=== PATIENT | male | born 1970 | race African-American/Black ===

== ENCOUNTER 2018-09-10 07:51 | Day surgery (SDC) | payer OTHER ==
[~2018-09-10] VITALS: Ht 180.3 cm; Wt 83.9 kg
[~2018-09-10 07:51] MED LIST: DESFLURANE 240 ML BOTTLE IH ONE
[2018-09-10 08:00] VITALS: BP 102/69
--- NOTE | 2018-09-10 08:00 | NUR ---
RN NOTES RECEIVED PATIENT, A/OX4, AMBULATORY, ABLE TO MAKE NEEDS KNOWN. NOT ON ANY FORM OF DISTRESS. BREATHING EVEN AND UNLABORED. FOR DAY SURGERY UNDER DR. BARRETT FOR L KNEE ARTHROSCOPY, CHONDROPLASTY, PARTIAL LATERAL MENISCECTOMY. SYNOVECTOMY. PATIENT MADE COMFORTABLE IN BED. VITAL SIGNS TAKEN AND NOTED. CONSENT FOR SURGERY, ANESTHESIA AND BLOOD TRANSFUSION TAKEN FROM THE PATIENT. IV LINE INITIATED: RAC G 20. PATIENT PREP FOR THE SURGERY. PATIENT ORIENTED TO UNIT AND USE OF CALL LIGHT. SAFETY MEASURES PUT IN PLACE. CALL LIGHT WITHIN REACH, WILL CONTINUE TO MONITOR AND ANTICIPATE NEEDS
--- NOTE | 2018-09-10 09:20 | NUR ---
RN NOTES PATIENT PICKED UP BY OR TEAM
[2018-09-10] MEDS ORDERED: FENTANYL PF 250MCG/5ML AMPUL ONE (09:27)
[2018-09-10] MEDS ORDERED: MIDAZOLAM HCL 2 MG/2ML VIAL ONE (09:27)
[2018-09-10] MEDS ORDERED: FAMOTIDINE/PF INJ 20 MG/2 ML VIAL IV ONE (09:34)
[2018-09-10] MEDS ORDERED: methylPREDNISolone ACETATE 40 MG/ML VIAL ONE (10:03)
[2018-09-10] MEDS ORDERED: BUPIVACAINE 0.5 % PF 150 MG/30 ML VIAL ONE (10:03)
[2018-09-10] MEDS ORDERED: MORPHINE SULFATE/PF 10 MG/10ML (1MG/ML) AMPUL ONE (10:08)
[2018-09-10] MEDS ORDERED: HYDROCODONE/APAP 10/325MG 1 EA TABLET ONE (11:08)
[2018-09-10 11:20] VITALS: BP 108/73
--- NOTE | 2018-09-10 11:20 | NUR ---
RN NOTES PATIENT BACK FROM OR. A/A/OX 4, NOT ON ANY FORM OF DISTRESS. NO COMPLAINTS OF PAIN. SITE CLEAN AND DRY, DRESSING INTACT, NO DRAINAGE OR BLEEDING NOTED, PERIPHERAL PULSE PALPABLE. PATIENT ABLE TO MOVE LIMBS. ALSO RECEIVED REPORTS FROM [facility] MCCURDY- PER THE LATER THE PATIENT IS FOR DISCHARGE ANY TIME. DISCHARGE INSTRUCTION GIVEN TO PATIENT AND GF AT BEDSIDE. WILL JUST REQUIRE AN HOUR MONITOR AND IS READY TO BE DISCHARGE Addendum: 09/10/18 at 1226 by JIAN ROBBINS RN VITAL SIGNS FOLLOWS: BP 108/73, HR AT 56, RR AT 18, TEMP AT 98.2 SATS AT 99%
[2018-09-10 12:00] VITALS: BP 112/70
--- NOTE | 2018-09-10 12:00 | NUR ---
RN NOTES PATIENT DISCHARGE. ALL CONCERNS AND QUESTIONS ADDRESSED APPROPRIATELY. ALL MEDICATION AND DISCHARGE INSTRUCTIONS GIVEN TO PATIENT AND GIRLFRIEND WHO IS AT BEDSIDE AT THIS TIME. ID BAND REMOVED, IV LINE REMOVED.ALL BELONGINGS GIVEN BACK TO PATIENT, CLOTHES WORN OUT. PATIENT WHEELED OUT OF THE UNIT BY ME ACCOMPANIED BT THE GIRLFRIEND.
[2018-09-10 12:31] VITALS: BP 102/69
== END 2018-09-10 16:00 | disposition home or self-care (01) ==
LOC: DS 07:51 → UNDOADMIN 07:53 → MED 07:53 → UNDODISIN 12:00 → DS 16:00
PROVIDERS: ATTEND Student in an Organized Health Care Education/Training Program
DX: S83.242A Other tear of medial meniscus, current injury, left knee, initial encounter (principal); M94.262 Chondromalacia, left knee; M65.862 Other synovitis and tenosynovitis, left lower leg; X58.XXXA Exposure to other specified factors, initial encounter; Y93.89 Activity, other specified; Y92.89 Other specified places as the place of occurrence of the external cause; Y99.8 Other external cause status
CPT/HCPCS: 29876; 29881; 88304; 88311; A4217; A6253; J0690; J2250; J2274; J2405; J2704; J2765; J3010; J3490 ×2; G0378; J1030

== ENCOUNTER 2024-04-17 11:39 | Emergency (ER) | payer BC, OTHER ==
[~2024-04-17] VITALS: Ht 180.3 cm; Wt 83.9 kg
[2024-04-17] MEDS ORDERED: LIDOCAINE 1% INJ 50 ML MDV IJ ONE (12:13)
[2024-04-17] MEDS: LIDOCAINE HCL/PF 1% 30 ML VIAL IM ONE (12:55)
[2024-04-17] MEDS: BACI/NEOM/POLY B OINT PKT 1 UDPKT PACKET TP ONE (12:55)
[2024-04-17 13:27] VITALS: BP 121/79; TEMP 98.3; O2SAT 99
== END 2024-04-17 13:27 | disposition home or self-care (01) ==
LOC: ER 11:48
DX: S21.112A Laceration without foreign body of left front wall of thorax without penetration into thoracic cavity, initial encounter (principal); S01.412A Laceration without foreign body of left cheek and temporomandibular area, initial encounter; W26.8XXA Contact with other sharp object(s), not elsewhere classified, initial encounter; Y93.89 Activity, other specified; Y92.89 Other specified places as the place of occurrence of the external cause; Y99.8 Other external cause status
CPT/HCPCS: 12002; 71045; 99283; J3490

== ENCOUNTER 2024-04-27 15:18 | Emergency (ER) | payer BC ==
[~2024-04-27] VITALS: Ht 180.3 cm; Wt 83.9 kg
[2024-04-27 15:29] VITALS: BP 121/78; TEMP 98.2
[2024-04-27 15:52] VITALS: O2SAT 97
== END 2024-04-27 16:41 | disposition home or self-care (01) ==
LOC: ER 16:00
DX: S21.119D Laceration without foreign body of unspecified front wall of thorax without penetration into thoracic cavity, subsequent encounter (principal); X58.XXXD Exposure to other specified factors, subsequent encounter